=== PATIENT | female | born 1985 | race Caucasian/White ===

== ENCOUNTER → 2020-12-13 10:41 | Outpatient (CLI) | payer MEDICAID, SELFPAY ==
[2020-11-29 10:16] VITALS: BMI 36.1
--- NOTE | 2020-12-14 08:31 | PFT ---
INTRODUCTION: The patient is a 35-year-old female that presents for pulmonary function studies secondary to a diagnosis of pulmonary embolism. Respiratory therapy reported good patient effort. Bronchodilators were used during testing. INTERPRETATION: Forced expiration spirometry demonstrates no evidence of a large airways obstructive ventilatory defect. There was no significant response to aerosolized bronchodilators. Spirograms are of good quality and plateau normally. Body plethysmography was performed and reveals lung volumes to be within normal limits. Diffusing capacity by single breath CO is reduced at 46% of predicted. IMPRESSION: Moderate reduction in diffusing capacity at 46% of predicted.
== END ==
PROVIDERS: PCP Nurse Practitioner Family; Referring Provider Internal Medicine Critical Care Medicine; Visit Provider Internal Medicine Critical Care Medicine
DX: I26.99 Other pulmonary embolism without acute cor pulmonale (principal)
CPT/HCPCS: 94060; 94726; 94729

== ENCOUNTER → 2021-03-13 08:20 | Outpatient (CLI) | payer MEDICAID, SELFPAY ==
--- NOTE | 2021-03-14 05:45 | PFTCOMP_ITS ---
COMPLETE PULMONARY FUNCTION TEST INTERPRETATION Brief HPI: Patient is a 36 year old female, currently under the care of myself, who presents to [facility] for complete pulmonary function tests secondary to diagnosis of PE. Respiratory therapist reports good effort and reproducible results. Interpretation: Forced expiration spirometry shows no large airways obstructive ventilatory defect with an FEV1 of 102% predicted. There is no significant bronchodilator response by strict ATS criteria. Spirograms are of good quality and plateau normally. The respiratory flow volume loop shows a normal pattern. Lung volumes by body plethysmography show a normal total lung capacity at 5.5 L, 113% predicted. All other lung volumes are within normal limits. Diffusion capacity by carbon monoxide is decreased at 53% predicted. The airway resistance is normal. Compared to previous pulmonary function tests from 12/13/2020, there is been a significant improvement in lung volumes and DLCO by 20% and 12% respectively. Impression: Isolated reduction in diffusing capacity, but significantly improved compared to previous study with normalization of lung volumes
== END ==
PROVIDERS: PCP Family Medicine; Referring Provider Internal Medicine Critical Care Medicine; Visit Provider Internal Medicine Critical Care Medicine
DX: I26.99 Other pulmonary embolism without acute cor pulmonale (principal)
CPT/HCPCS: 94060; 94726; 94729

== ENCOUNTER → 2021-12-03 | Outpatient (CLI) | payer MEDICAID, SELFPAY ==
[2021-12-03 09:47] LABS: Estradiol 288.7 pg/mL; Luteinizing Hormone 15.1 mIU/mL
[2021-12-03 10:14] LABS: Progesterone Level < 0.21 ng/mL (See Comment)
== END | disposition home or self-care (01) ==
PROVIDERS: PCP Family Medicine; Visit Provider Obstetrics & Gynecology Reproductive Endocrinology
DX: Z31.83 Encounter for assisted reproductive fertility procedure cycle (principal)
CPT/HCPCS: 36415; 82670; 83002; 84144

== ENCOUNTER → 2021-12-14 | Outpatient (CLI) | payer MEDICAID, SELFPAY ==
[2021-12-14 10:33] LABS: Estradiol 365.2 pg/mL
[2021-12-14 10:34] LABS: Progesterone Level 55.27 ng/mL (See Comment)
== END | disposition home or self-care (01) ==
LOC: LAB.FUTURE 08:46 → WOBLAB 11:09
PROVIDERS: PCP Family Medicine; Visit Provider Obstetrics & Gynecology Reproductive Endocrinology
DX: Z31.49 Encounter for other procreative investigation and testing (principal)
CPT/HCPCS: 36415; 82670; 84144

== ENCOUNTER → 2022-01-18 | Outpatient (CLI) | payer MEDICAID, SELFPAY ==
[2022-01-18 13:55] LABS: Absolute Neutrophil Count 6.1 X10^3/uL (2.0-7.7); Basophil# 0.03 X10^3/uL; Basophil% 0.3 % (0-1); Eosinophil# 0.33 X10^3/uL; Eosinophils% 3.7 % (0-5); Hematocrit 39.1 % (37-47); Hemoglobin 12.5 g/dL (12.0-15.0); Lymphocyte % 22.5 % (19-41); Mean Corpuscular Hgb 25.7 pg (27.0-32.0); Mean Corpuscular Volume 80.3 fL (81-99); Mean Platelet Vol. 11.2 fl (6.2-12.0); Monocyte# 0.43 X10^3/uL; Monocyte% 4.8 % (0-10); NRBC Flagged by Analyzer 0 % (0-5); Neutrophil # 6.05 X10^3/uL (2.7-7.7); Neutrophil % 68.4 % (47-70); Platelet Count 382 K/mm3 (150-450); RBC Distribution Width CV 16.3 % (11.6-14.6); Red Blood Count 4.87 M/mm3 (4.2-5.4); White Blood Count 8.9 K/mm3 (4.4-11.0)
[2022-01-18 14:16] LABS: T4 Free Direct 1.39 ng/dL (0.76-1.46); Thyroid Stim Hormone (TSH) 0.35 uIU/mL (0.358-3.74)
[2022-01-18 14:44] LABS: HIV - WCH Non-Reactive (Nonreactive); Hepatitis B Surface Antigen Non-Reactive (Nonreactive); Hepatitis C Antibody Non-Reactive (Nonreactive); Rubella IgG Reactive (Nonreactive); Syphilis Antibodies Non-reactive
[2022-01-21 18:07] LABS: Chlamydia By Nucleic Acid AMP Negative (Negative); Gonococcus By Nucleic Acid AMP Negative (Negative)
[2022-01-21 20:58] LABS: V-Zoster IgG (Immunity) 2274 index (Immune >165)
== END | disposition home or self-care (01) ==
LOC: WOBLAB 12:08
PROVIDERS: PCP Family Medicine; Visit Provider Obstetrics & Gynecology
DX: Z34.81 Encounter for supervision of other normal pregnancy, first trimester (principal); E03.9 Hypothyroidism, unspecified
CPT/HCPCS: 36415; 84439; 84443; 85025; 86703; 86762; 86780; 86787; 86803; 87086; 87088; 87340; 87491; 87591

== ENCOUNTER → 2022-01-30 | Outpatient (CLI) | payer MEDICAID, SELFPAY ==
[2022-01-30 16:09] LABS: Ferritin 9 ng/mL (8-252)
== END | disposition home or self-care (01) ==
LOC: WOBLAB 14:35
PROVIDERS: PCP Family Medicine; Visit Provider Student in an Organized Health Care Education/Training Program
DX: R71.8 Other abnormality of red blood cells (principal)
CPT/HCPCS: 36415; 82728

== ENCOUNTER → 2022-03-25 | Outpatient (CLI) | payer MEDICAID, SELFPAY ==
[2022-03-25 13:07] LABS: T4 Free Direct 0.78 ng/dL (0.76-1.46); Thyroid Stim Hormone (TSH) 0.38 uIU/mL (0.358-3.74)
== END | disposition home or self-care (01) ==
LOC: WOBLAB 11:02
PROVIDERS: PCP Family Medicine; Visit Provider Student in an Organized Health Care Education/Training Program
DX: E03.9 Hypothyroidism, unspecified (principal)
CPT/HCPCS: 36415; 84439; 84443

== ENCOUNTER → 2022-05-24 | Outpatient (CLI) | payer MEDICAID, SELFPAY ==
[2022-05-24 10:32] LABS: Absolute Lymphocyte Count 2.03 X10^3/uL (0.83-4.51); Basophil# 0.07 X10^3/uL; Basophil% 0.6 % (0-1); Eosinophils% 2.7 % (0-5); Hematocrit 32.7 % (37-47); Hemoglobin 10.2 g/dL (12.0-15.0); Lymphocyte # 2.03 X10^3/ul (0.83-4.51); Lymphocyte % 18.1 % (19-41); Mean Corp Hgb Conc 31.2 g/dL (32-36); Mean Corpuscular Hgb 25.6 pg (27.0-32.0); Monocyte# 0.58 X10^3/uL; Monocyte% 5.2 % (0-10); NRBC Flagged by Analyzer 0.3 % (0-5); Neutrophil # 8.02 X10^3/uL (2.7-7.7); Neutrophil % 71.7 % (47-70); Platelet Count 271 K/mm3 (150-450); RBC Distribution Width CV 18.2 % (11.6-14.6); RBC Distribution Width SD 53.1 fl (35.1-43.9); Red Blood Count 3.99 M/mm3 (4.2-5.4); White Blood Count 11.2 K/mm3 (4.4-11.0)
[2022-05-24 11:13] LABS: Glucose Challenge Gest 1H 50g 155 mg/dL (70-140); T4 Free Direct 0.72 ng/dL (0.76-1.46); Thyroid Stim Hormone (TSH) 1.23 uIU/mL (0.358-3.74)
== END | disposition home or self-care (01) ==
LOC: WOBLAB 10:18
PROVIDERS: PCP Family Medicine; Visit Provider Student in an Organized Health Care Education/Training Program
DX: Z34.82 Encounter for supervision of other normal pregnancy, second trimester (principal); E03.9 Hypothyroidism, unspecified
CPT/HCPCS: 36415; 82950; 84439; 84443; 85025

== ENCOUNTER → 2022-05-30 | Outpatient (CLI) | payer MEDICAID, SELFPAY ==
[2022-05-30 09:39] LABS: Glucose GTT-Gestation. Fasting 82 mg/dL (<105)
[2022-05-30 10:56] LABS: Glucose GTT-Gestational 1 Hr 171 mg/dL (<190)
[2022-05-30 11:22] LABS: Glucose GTT-Gestational 2 Hr 153 mg/dL (<165)
[2022-05-30 12:57] LABS: Glucose GTT-Gestational 3 Hr 143 L (<145)
== END | disposition home or self-care (01) ==
LOC: WOBLAB 08:42
PROVIDERS: PCP Family Medicine; Visit Provider Student in an Organized Health Care Education/Training Program
DX: Z34.82 Encounter for supervision of other normal pregnancy, second trimester (principal)
CPT/HCPCS: 36415; 82951; 82952

== ENCOUNTER 2022-05-31 21:27 | Outpatient (CLI) | payer MEDICAID, SELFPAY ==
[2022-05-31] VITALS (8 sets, daily range): BP systolic 125–136; BP diastolic 79–86; PULSE 103–119; O2SAT 93–98; BMI 34.0
--- NOTE | 2022-05-31 22:38 | HP.PCM.OB_ITS ---
History and Physical Date of Admission: 05/31/22 HPI: 37-year-old G3, P2 at 27/2 weeks GABBY 08/28/2022 by IVF, presenting with vaginal bleeding. Patient reports that she was making dinner this evening and noted some blood in her underwear. Had some on toilet paper and a pad on her way up. No large clots. Reports [place] contractions which she has been having in this , occasionally feels pelvic pressure with 1 at this time. Does state that they have been slightly more increased in the last couple hours. Denies leaking of fluid. Reports movement. Denies headache or vision changes, chest pain or shortness of breath, nausea or vomiting, diarrhea or constipation, fevers or chills. complicated by: [place] twins, advanced maternal age, history of pulmonary embolism on Lovenox 40 mg daily (last dose this morning), placenta previa, hypothyroidism, failed 1 hr passed 3 hour. [employer] history G1: 39-week G2: 39-week . hemorrhage with manual extraction of placenta at the hospital after home delivery. pulmonary embolism. 2 weeks . G3 current Medical history: 1. Pulmonary embolism October 2020 2. Hypothyroidism 3. Anxiety Surgical history: 1. Removal of placenta under anesthesia 2. [place] tooth extraction 3. Oocyte retrieval Medications: 1. PNV 2. Omeprazole 3. Vit D3 4. Lovenox 40 mg qD 5. ASA 81 mg 6. Levothyroxine 25 mcg Allergies: 1. Labetalol causes hives Family history: no history of blood clots, bleeding disorders Social history: denies tobacco, alcohol, drug use ROS: negative otherwise stated above Physical Exam: Blood pressure 136/86, heart rate 116, pulse ox 97% on room air General: No acute distress HEENT: Normal cephalic/atraumatic, PERRLA Cardiorespiratory: No increased effort Abdomen: Soft, nontender, gravid Musculoskeletal: Strength 5 out of 5 throughout extremities Neurologic: Cranial nerves II through XII grossly intact, no focal deficits Extremities: No edema Speculum exam: Mild amount of blood in the vaginal vault at the cervix. No visible active bleeding. Cervix visually closed and thick. heart rate: A: 155/mod nita/+accel/no decel B: 145/mod nita/+accel/no decel. Difficult to trace Pelican: quiet BSUS: A: maternal left, breech. Incidental finding of practice breathing. Multiple gross body movements noted. B: maternal right, cephalic. Multiple gross body movements noted. Fluid subjectively normal Assessment/Plan: 37-year-old G3, P2 at 27/2 weeks with mono/di twins, GABBY 08/28/2022 by IVF, presenting with vaginal bleeding in the setting of placenta previa. complicated by: [place] twins, advanced maternal age, history of pulmonary embolism on Lovenox 40 mg daily (last dose this morning), placenta previa, hypothyroidism ?Placenta previa. Vaginal bleeding started this evening. Mild amount in the vaginal vault. Patient is Rh+. As the patient is having some bleeding and is 27 weeks with twin , intended to transport patient for likely extended observation. ?[place]/di twins. Patient has been having TTS screening with MFM. ?History of pulmonary embolism: Last Lovenox dosage this morning. Patient is taking 40 mg daily of Lovenox. ?Hypothyroidism stable on Synthroid ?Advance maternal age -CBC, T&S. HLIV. Awaiting call back from transport line
[2022-05-31 23:40] LABS: Absolute Lymphocyte Count 2.82 X10^3/uL (0.83-4.51); Absolute Neutrophil Count 10.2 X10^3/uL (2.0-7.7); Basophil# 0.05 X10^3/uL; Basophil% 0.4 % (0-1); Eosinophil# 0.21 X10^3/uL; Eosinophils% 1.5 % (0-5); Hematocrit 32.2 % (37-47); Hemoglobin 9.7 g/dL (12.0-15.0); Lymphocyte # 2.82 X10^3/ul (0.83-4.51); Lymphocyte % 19.8 % (19-41); Mean Corp Hgb Conc 30.1 g/dL (32-36); Mean Corpuscular Hgb 24.4 pg (27.0-32.0); Mean Corpuscular Volume 81.1 fL (81-99); Mean Platelet Vol. 11.2 fl (6.2-12.0); Monocyte# 0.78 X10^3/uL; Monocyte% 5.5 % (0-10); NRBC Flagged by Analyzer 0.1 % (0-5); Neutrophil # 10.15 X10^3/uL (2.7-7.7); Neutrophil % 71.3 % (47-70); Platelet Count 259 K/mm3 (150-450); RBC Distribution Width CV 18.6 % (11.6-14.6); RBC Distribution Width SD 52.5 fl (35.1-43.9); Red Blood Count 3.97 M/mm3 (4.2-5.4); White Blood Count 14.2 K/mm3 (4.4-11.0)
[2022-06-01] VITALS (64 sets, daily range): BP systolic 111–125; BP diastolic 59–79; PULSE 93–115; RESP 16; TEMP 35.8–36.6; O2SAT 94–99
[2022-06-01] MEDS: Betamethasone/Betamethasone 30 MG/5 ML Vial 12 MG IM (00:20)
[2022-06-01] MEDS: Magnesium Sulfate 4gm/100mL 4 GM/100 ML IV.SOLN. IV (00:21)
[2022-06-01] MEDS: Famotidine 20 MG Tablet PO (00:38)
[2022-06-01] MEDS: Magnesium Sulfate 20 GM/500 ML BAG IV (00:48)
== END 2022-06-01 04:44 | disposition short-term general hospital (02) ==
LOC: WPOUT 21:31 → WP 21:31
PROVIDERS: PCP Family Medicine; Visit Provider Student in an Organized Health Care Education/Training Program
DX: O46.92 Antepartum hemorrhage, unspecified, second trimester (principal); O99.282 Endocrine, nutritional and metabolic diseases complicating pregnancy, second trimester; O30.042 Twin pregnancy, dichorionic/diamniotic, second trimester; Z79.82 Long term (current) use of aspirin; Z79.899 Other long term (current) drug therapy; Z86.711 Personal history of pulmonary embolism; E03.9 Hypothyroidism, unspecified; Z3A.27 27 weeks gestation of pregnancy
CPT/HCPCS: 96365; 96366 ×3; 36415; 59025; 59050; 85025; 86850; 86900; 86901; 96367; 96372; 99221; G0378; J0702

== ENCOUNTER → 2023-09-22 | Outpatient (CLI) | payer MEDICAID, SELFPAY ==
[2023-09-22 11:57] LABS: Vitamin D,25 Hydroxy 49.8 ng/mL
[2023-09-22 12:17] LABS: ALB/GLOB Ratio 0.8 RATIO (0.9-2.4); AST(SGOT) 19 U/L (15-37); Alanine Aminotransfer ALT/SGPT 26 U/L (13-56); Albumin, Serum 3.3 g/dL (3.2-5.0); Alkaline Phosphatase 55 U/L (45-117); Anion Gap 6 (5-15); BUN 12 mg/dL (7-18); BUN/Creat Ratio 17.8 RATIO (10-20); Chloride 112 mmol/L (98-107); Creatinine, Serum 0.68 mg/dL (0.55-1.02); EST Glomerular Filtration Rate 103 mL/min (>60); Est Glom Filt Rate - Afr Amer 125 mL/min (>60); Globulin 3.9 g/dL (2.2-4.2); Glucose 91 mg/dL (74-106); Potassium 4.1 mmol/L (3.5-5.1); Protein, Total 7.2 g/dL (6.4-8.2); Sodium Level 140 mmol/L (136-145); Thyroid Stim Hormone (TSH) 0.23 uIU/mL (0.358-3.74)
[2023-09-23 18:08] LABS: Anti-Thyroglobulin AB < 1.0 IU/mL (0.0-0.9); Thyroglobulin, Serum Qt. 0.1 ng/mL (1.5-38.5)
== END | disposition home or self-care (01) ==
PROVIDERS: PCP Family Medicine; Referring Provider Internal Medicine Endocrinology, Diabetes & Metabolism; Visit Provider Internal Medicine Endocrinology, Diabetes & Metabolism
DX: C73 Malignant neoplasm of thyroid gland (principal); E89.0 Postprocedural hypothyroidism; E55.9 Vitamin D deficiency, unspecified
CPT/HCPCS: 36415; 80053; 82306; 84432; 84439; 84443; 86800

== ENCOUNTER → 2025-05-05 | Outpatient (CLI) | payer MEDICAID, SELFPAY ==
[2025-05-05 13:15] LABS: Hematocrit 37.8 % (37-47); Hemoglobin 12.0 g/dL (12.0-15.0)
[2025-05-05 14:05] LABS: AST(SGOT) 23 U/L (<=31); Alanine Aminotransfer ALT/SGPT 23 U/L (<=34); Albumin, Serum 4.0 g/dL (3.5-5.0); Alkaline Phosphatase 46 U/L (35-104); Anion Gap 9 (5-15); BUN 13 mg/dL (4-19); BUN/Creat Ratio 18.7 RATIO (10-20); Calcium,Total 8.4 mg/dL (7.6-11.0); Carbon Dioxide 24.7 mmol/L (21.0-32.0); Chloride 105 mmol/L (98-108); Ferritin 23 ng/mL (22-378); Globulin 2.9 g/dL (2.2-4.2); Glucose 84 mg/dL (70-99); Potassium 4.1 mmol/L (3.3-5.1)
== END | disposition home or self-care (01) ==
LOC: LAB 12:10
PROVIDERS: PCP Family Medicine; Referring Provider Internal Medicine Endocrinology, Diabetes & Metabolism; Visit Provider Internal Medicine Endocrinology, Diabetes & Metabolism
DX: E89.0 Postprocedural hypothyroidism (principal); D50.9 Iron deficiency anemia, unspecified
CPT/HCPCS: 36415; 80053; 82728; 84439; 84443; 85014; 85018